=== PATIENT | male | born 1985 | race Caucasian/White ===

== ENCOUNTER 2016-10-09 15:31 | Emergency (ER) | payer SELFPAY ==
[2016-10-09] MEDS ORDERED: Naproxen 500 MG TAB ONE (16:24)
[2016-10-09] MEDS ORDERED: HYDROcodone/Acetaminophen 10/325 mg Tablet ONE (17:26)
--- NOTE | 2016-10-09 20:26 | RAD ---
LEFT WRIST THREE VIEWS: History: 31-year-old male with left wrist pain following an injury. FINDINGS: There appears to be an essentially nondisplaced fracture of the distal radius involving the epiphysi s with a vertical extension into the radial carpal joint. IMPRESSION: Essentially nondisplaced fracture possibly with mild comminution including a vertical component exte nding into the posterior radial carpal joint. The carpal bones and distal ulna appear intact. POS: [facility]
== END 2016-10-09 18:10 | disposition home or self-care (01) ==
LOC: MADERS 15:31
DX: S52.502A Unspecified fracture of the lower end of left radius, initial encounter for closed fracture (principal); F17.210 Nicotine dependence, cigarettes, uncomplicated; X58.XXXA Exposure to other specified factors, initial encounter